=== PATIENT | male | born 1995 | race African-American/Black ===

== ENCOUNTER → 2019-08-19 18:55 | Outpatient (CLI) | payer MEDICAID ==
[2019-08-19 20:46] LABS: ANION GAP 11.8 mmol/L (8-16); CALCIUM 8.8 mg/dL (8.5-10.1); CARBON DIOXIDE 31.3 mmol/L (21.0-32.0); CREATININE - SERUM 1.4 mg/dL (0.6-1.3); POTASSIUM - SERUM 3.1 mmol/L (3.5-5.1)
== END | disposition home or self-care (01) ==
LOC: D.LABREF 18:55
PROVIDERS: ATTEND Internal Medicine Cardiovascular Disease
DX: I50.43 Acute on chronic combined systolic (congestive) and diastolic (congestive) heart failure (principal)

== ENCOUNTER → 2019-09-09 18:27 | Outpatient (CLI) | payer MEDICAID ==
[2019-09-09 19:13] LABS: CALC OSMOLALITY 266 mosm/kg (275-300); CALCIUM 8.7 mg/dL (8.5-10.1); CARBON DIOXIDE 27.7 mmol/L (21.0-32.0); CHLORIDE - SERUM 90 mmol/L (98-107); POTASSIUM - SERUM 4.1 mmol/L (3.5-5.1); SODIUM 134 mmol/L (136-145); UREA NITROGEN 16 mg/dL (7-18); eGFR NON AFRICAN AMERICAN > 90 mL/min (90-120)
[2019-09-09 19:14] LABS: GLUCOSE 66 mg/dL (74-106)
== END | disposition home or self-care (01) ==
LOC: D.LABREF 18:27
PROVIDERS: ATTEND Internal Medicine Cardiovascular Disease
DX: I50.43 Acute on chronic combined systolic (congestive) and diastolic (congestive) heart failure (principal)